=== PATIENT | female | born 1945 ===

== ENCOUNTER → 2023-01-15 15:15 | Outpatient (CLI) | payer MEDICARE, SELFPAY | PROVIDERS: PCP Student in an Organized Health Care Education/Training Program; Visit Provider Urology | DX: R39.13 Splitting of urinary stream (principal); R39.14 Feeling of incomplete bladder emptying; N39.8 Other specified disorders of urinary system; K50.918 Crohn's disease, unspecified, with other complication; R39.11 Hesitancy of micturition; Z87.440 Personal history of urinary (tract) infections; Z90.710 Acquired absence of both cervix and uterus | CPT/HCPCS: 51798; 81002; 87086; 99214 ==

== ENCOUNTER → 2023-02-07 10:08 | Outpatient (CLI) | payer MEDICARE, SELFPAY | PROVIDERS: PCP Student in an Organized Health Care Education/Training Program; Visit Provider Urology | DX: R39.14 Feeling of incomplete bladder emptying (principal); R39.13 Splitting of urinary stream; N39.8 Other specified disorders of urinary system; Z87.440 Personal history of urinary (tract) infections | CPT/HCPCS: 52000; 81002; 87086 ==

== ENCOUNTER → 2023-06-06 08:24 | Outpatient (CLI) | payer MEDICARE, SELFPAY | PROVIDERS: PCP Student in an Organized Health Care Education/Training Program; Visit Provider Urology | DX: N39.8 Other specified disorders of urinary system (principal); R39.14 Feeling of incomplete bladder emptying; R39.13 Splitting of urinary stream; Z87.440 Personal history of urinary (tract) infections | CPT/HCPCS: 81002; 87086; 99214 ==